=== PATIENT | female | born 1995 ===

== ENCOUNTER 2020-06-29 06:00 | Day surgery (SDC) | payer OTHER ==
[~2020-06-29 06:00] MED LIST: IRON236 MG PO
[2020-06-29] MEDS ORDERED: Tylenol #3 PO (10:59)
[2020-06-29] MEDS ORDERED: MORGIDOX100 MG PO (10:59)
== END 2020-06-29 17:50 | disposition home or self-care (01) ==
LOC: CIR.AMB 06:00
PROVIDERS: ATTEND Obstetrics & Gynecology
DX: D25.0 Submucous leiomyoma of uterus (principal); N84.0 Polyp of corpus uteri; Z20.822 Contact with and (suspected) exposure to COVID-19